=== PATIENT | male | born 1955 | race African-American/Black ===

== ENCOUNTER 2025-10-17 17:55 | Emergency (ER) | payer MEDICAID ==
[~2025-10-17] VITALS: Ht 172.7 cm; Wt 70.0 kg
[~2025-10-17 17:55] MED LIST: ALBU10.7 INH; ALBU18HF2 IH
[2025-10-17 18:03] VITALS: BP 144/102; PULSE 73; RESP 18; TEMP 36.7; O2SAT 98
== END 2025-10-17 20:50 | disposition left against medical advice (07) ==
LOC: ER 17:55
DX: N48.89 Other specified disorders of penis (principal); Z87.11 Personal history of peptic ulcer disease
CPT/HCPCS: 99282